=== PATIENT | male | born 1930 | race Caucasian/White ===

== ENCOUNTER 2018-11-04 03:40 | Inpatient (IN) | payer MEDICARE ==
[~2018-11-04] VITALS: Ht 165.1 cm; Wt 68.9 kg
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
[2018-11-04] MEDS ORDERED: CYAN10009 PO (04:56)
[2018-11-04 04:57] VITALS: BP 185/89
[2018-11-04] MEDS ORDERED: HYDR25CA PO (04:58)
[2018-11-04] MEDS ORDERED: TAMS-12 PO (05:00)
[2018-11-04] MEDS ORDERED: AMOX-430 PO (05:01)
[2018-11-04] MEDS ORDERED: ACETAMINOPHEN 325 MG TABLET PO PRN (05:30)
[2018-11-04] MEDS ORDERED: MAG HYDROX/AL HYDROX/SIMETH 30 ML UDC PO PRN (05:30)
[2018-11-04] MEDS ORDERED: ZOLPIDEM TARTRATE 5 MG TABLET PO PRN (05:30)
[2018-11-04] MEDS ORDERED: LORAZEPAM 0.5 MG TABLET PO PRN (05:30)
[2018-11-04] MEDS ORDERED: MAGNESIUM HYDROXIDE 30 ML UDC PO PRN (05:30)
[2018-11-04 08:00] VITALS: BP 160/93
--- NOTE | 2018-11-04 14:20 | NUR ---
GPS/RN-NOTES NOTED PATIENT VERY ANXIOUS GETTING OUT OF BED UNASSISTED,PATIENT IS CONFUSED UNSTEADY GAIT. REDIRECTED PATIENT AND ATIVAN 0.5MG P.O GIVEN PRN ORDER. WILL CONT. MONITORING FOR SAFETY AND BEHAVIOR.ALL NEEDS ATTENDED AND ANTICIPATED.
--- NOTE | 2018-11-04 15:20 | NUR ---
GPS/RN-NOTES PATIENT IN THE ROOM ,CALM,NO ACUTE DISTRESS NOTED.
[2018-11-04 16:00] VITALS: BP 154/98
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
--- NOTE | 2018-11-04 17:45 | NUR ---
GPS/RN-NOTES SIDENY SANCHEZ SEEN THE PATIENT AND WILL RECONCILE PT'S. MEDICATIONS.
--- NOTE | 2018-11-04 19:30 | NUR ---
GPS RN NOTE, RECEIVED PATIENT AWAKE AND IN ROOM NO S/S OR COMPLAINTS OF PAIN AT THIS TIME. PATIENT IS DISPLAYING NO S/S OF APPARENT DISTRESS AT THIS TIME. PATIENT BREATHING IS UNLABORED WITH EQUAL RISE AND FALL OF THE CHEST. PATIENT IS ALERT AND ORIENTED X 1 ON ROOM AIR WITH A SPO2 OF 97%. PATIENT IS MED COMPLIANT, CONFUSED, DISORGANIZED, ANXIOUS, COOPERATIVE, AND NEEDS REORIENTATION. PATIENT DENIES SUICIDE AND HOMICIDAL IDEATIONS AT THIS TIME. PATIENT ASSISTED WITH TURNING AND REPOSITIONING Q2HR AND PRN FOR COMFORT AND CIRCULATION. PATIENT HAS NO NEEDS AT THIS TIME. PATIENT EDUCATED ON THE USE OF THE CALL CARRILLO. PATIENT BED SIDE RAILS ARE UP X 2 FOR SAFETY, BED IS LOCKED AND LOW. WILL CONTINUE TO MONITOR AND MAINTAIN SAFETY Q15 MIN WITH THE HELP OF STAFF.
--- NOTE | 2018-11-04 20:04 | NUR ---
GPS RN NOTE, PATIENT VITAL SIGNS ARE FOLLOWS B/P 204 / 106, PULSE 83, TEMP 98.1, SPO2 97%. PAGED [facility] AND INFORMED REGGIE BARROW OF MY FINDINGS. REGGIE BARROW ORDERED TO GIVE METOPROLOL TARTRATE 25 MG PO BID. ALL ORDERS NOTED AND CARRIED OUT. WILL CONTINUE TO MONITOR THIS PATIENT.
[2018-11-04 20:29] VITALS: BP 204/106
[2018-11-04] MEDS ORDERED: METOPROLOL TARTRATE 25 MG TABLET PO SCH (21:00)
[2018-11-04] MEDS ORDERED: QUETIAPINE FUMARATE 25 MG TABLET PO SCH (22:00)
[2018-11-04] MEDS ORDERED: TAMSULOSIN 0.4 MG CAP.SR.24H PO SCH (22:00)
[2018-11-04] MEDS ORDERED: LEVETIRACETAM SOL (5 ML) 100 MG/ML UDC PO SCH (23:30)
--- NOTE | 2018-11-04 23:30 | NUR ---
GPS RN NOTE, RECEIVED CALL FROM RADIOLOGY AND DID A CONFERENCE CALL WITH REGGIE COULTER [facility]. 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 REGGIE COULTER GAVE ORDER TO TRANSFER PATIENT TO ICU. PAGED DR SHAHID AND INFORMED HIM OF MY FINDINGS. DR SHAHID ORDERED TO CONTINUE HOLD AND TO CONTINUE SEROQUEL 25 MG PO HS. ALL ORDERS NOTED AND CARRIED OUT. PATIENT ENDORSED TO ICU NURSE TRANSPORTED TO [facility] WITH SITTER. PATIENT LEFT IN STABLE CONDITION.
[2018-11-05] MEDS ORDERED: CYAN10009 PO (00:55)
[2018-11-05] MEDS ORDERED: ACET325T53 PO (00:55)
[2018-11-05] MEDS ORDERED: MAG-106 PO (01:00)
[2018-11-05] MEDS ORDERED: LORA0.5T PO (01:00)
[2018-11-05] MEDS ORDERED: METO25TA6 PO (01:02)
[2018-11-05] MEDS ORDERED: QUET25TA PO (01:05)
[2018-11-05] MEDS ORDERED: LEVE500T9 PO (01:21)
[2018-11-05] MEDS ORDERED: MAGN400O6 PO (08:23)
[2018-11-05] MEDS ORDERED: MAG30ORA PO (08:23)
[2018-11-05] MEDS ORDERED: CYANOCOBALAMIN 500 MCG TABLET PO SCH (09:00)
--- NOTE | 2018-11-05 09:12 | NUR ---
TRANSFER: Pt was transferred to ICU on 11/05/18 due to Subdermal Hematoma.
[2018-11-07] MEDS ORDERED: LISI5TAB45 PO (13:32)
[2018-11-07] MEDS ORDERED: HYDR-4075 PO (13:32)
== END 2018-11-05 00:03 | disposition short-term general hospital (02) | DRG 885 ==
LOC: GPS 03:40
PROVIDERS: ADMIT Psychiatry & Neurology Psychiatry; ATTEND Nurse Practitioner Acute Care
DX: F29 Unspecified psychosis not due to a substance or known physiological condition (principal); I62.00 Nontraumatic subdural hemorrhage, unspecified; F03.91 Unspecified dementia, unspecified severity, with behavioral disturbance; F41.9 Anxiety disorder, unspecified; N40.0 Benign prostatic hyperplasia without lower urinary tract symptoms; Z73.6 Limitation of activities due to disability
CPT/HCPCS: 70450-TC

== ENCOUNTER 2018-11-04 23:47 | Inpatient (IN) | payer MEDICARE ==
[~2018-11-04] VITALS: Ht 167.6 cm; Wt 70.3 kg
[~2018-11-04 23:47] MED LIST: CYAN10009 PO; TAMS-12 PO
[2018-11-04 23:54] VITALS: BP 149/88
[2018-11-05] VITALS (19 sets, daily range): BP systolic 112–169; BP diastolic 52–96
[2018-11-05] MEDS ORDERED: CYAN10009 PO (00:55)
[2018-11-05] MEDS ORDERED: ACET325T53 PO (00:55)
[2018-11-05] MEDS ORDERED: LORA0.5T PO (01:00)
[2018-11-05] MEDS ORDERED: MAG-106 PO (01:00)
[2018-11-05] MEDS ORDERED: METO25TA6 PO (01:02)
[2018-11-05] MEDS ORDERED: QUET25TA PO (01:05)
[2018-11-05] MEDS ORDERED: LEVE500T9 PO (01:21)
--- NOTE | 2018-11-05 02:19 | NUR ---
PLANT CONTROLLER. RECEIVED THE PT FROM [facility].PT IS SLEEPING CT SHOWING SUBDURAL HEMATOMA, PT IS 5150 HOLD. SITTER AT BED SIDE. PT IS ROOM AIR. SAT 97%. NO ACUTE DISTRESS NOTED. DANII LOWER EXTREMITY WEAK , ,DANII PUPIL REACT. TENSIONING MACHINE OPERATOR SHOWING S ERNESTINA. WILL CONTINUE TO MONITOR VITALS.
[2018-11-05] MEDS ORDERED: Z GUARD REMEDY 2 OZ OINT TP PRN (05:00)
[2018-11-05] MEDS ORDERED: ZOLPIDEM TARTRATE 5 MG TABLET PO PRN (05:00)
[2018-11-05] MEDS ORDERED: ONDANSETRON HCL/PF 4 MG/2 ML VIAL IVP PRN (05:00)
[2018-11-05] MEDS ORDERED: ACETAMINOPHEN 325 MG TABLET PO PRN (05:00)
[2018-11-05] MEDS: IV NS 0.9% 1,000 ML IV PRN ×2 (05:12→21:24)
[2018-11-05 05:18] LABS: BASOPHILS # (AUTO) 0.1 /CMM (0.0-0.2); EOSINOPHILS % (AUTO) 2.6 % (0.0-6.0); HEMATOCRIT 39 % (39-51); HEMOGLOBIN 13.1 g/dL (13.5-17.5); LYMPHOCYTES # (AUTO) 1.7 /CMM (0.8-4.8); LYMPHOCYTES % (AUTO) 29.1 % (20.0-44.0); MEAN CORPUSCULAR HGB CONC 34 g/dl (31.0-36.0); MEAN CORPUSCULAR VOLUME 93 fL (80-96); MONOCYTES # (AUTO) 0.6 /CMM (0.1-1.30); MONOCYTES % (AUTO) 9.7 % (2.0-12.0); NEUTROPHILS # (AUTO) 3.4 /CMM (1.8-8.9); NEUTROPHILS % (AUTO) 57.6 % (43.0-81.0); PLATELET COUNT (AUTO) 191 /CMM (150-450); RED BLOOD CELL COUNT(AUTO) 4.23 MIL/uL (4.5-6.0); WHITE BLOOD COUNT (AUTO) 5.8 K/uL (4.3-11.0)
--- NOTE | 2018-11-05 05:24 | NUR ---
MICA PLATE LAYER HAND. AM CARE, ORAL CARE, BED BATH GIVEN. LINEN CHANGED, REMAINING SAME IVF NS 75 ML/H. IV RT AND LT HAND 20G. PT ON ROOM AIR. SAT 98%.NO ACUTE DISTRESS NOTED. HEAD OF PHYSICS SHOWING S ERNESTINA. PT IS SLEEPING.STILL LETHARGIC SITTER AT BED SIDE. WILL CONTINUE TO MONITOR VITALS. DURING SHIFT NO NEW CHANGED. SINCE ON ADMISSION PT WAS LETHARGIC. SEROQUEL GIVEN FROM PSY UNIT.
[2018-11-05 05:30] LABS: CALCIUM, SERUM 8.1 mg/dL (8.5-10.1); CARBON DIOXIDE 29 mmol/L (21-32); CHLORIDE 104 mmol/L (98-107); GLUCOSE 115 mg/dL (74-106); MAGNESIUM 1.9 mg/dL (1.8-2.4); PHOSPHORUS 3.1 mg/dL (2.5-4.9); POTASSIUM 3.6 mmol/L (3.5-5.1); SODIUM SERUM 136 mmol/L (136-145); UREA NITROGEN, BLOOD 24 mg/dL (7-18)
[2018-11-05 05:32] LABS: CHOLESTEROL 152 mg/dL (<200); HDL CHOLESTEROL 39 mg/dL (40-60); LDL 107 mg/dL (0-99); TRIGLYCERIDES 53 mg/dL (30-150)
--- NOTE | 2018-11-05 07:15 | NUR ---
RN INITIAL NOTES RECEIVED PT LETHARGIC. MOVES TO PAIN. NO RESPIRATORY DISTRESS NOTED. NO SIGNS OF PAIN NOTED. ON ROOM AIR. SINUS BRADYCARDIA ON MONITOR. IV LINES IN PLACE. IVF INFUSING. PT CLEAN AND DRY. KEPT COMFORTABLE. 1:1 SITTER. WILL MONITOR
[2018-11-05] MEDS ORDERED: MAG30ORA PO (08:23)
[2018-11-05] MEDS ORDERED: MAGN400O6 PO (08:23)
--- NOTE | 2018-11-05 09:30 | NUR ---
RN NOTES PT AWAKE, A/OX1 WITH PERIODS OF CONFUSION. ABLE TO FOLLOW SIMPLE COMMANDS. BEDSIDE SWALLOW DONE. NO SIGNS OF ASPIRATION. ABLE TO TAKE MEDICINE BY MOUTH.
[2018-11-05] MEDS: LEVETIRACETAM SOL (5 ML) 100 MG/ML UDC PO SCH ×2 (10:15→21:24)
--- NOTE | 2018-11-05 10:55 | NUR ---
RN NOTES SEEN AND EXAMINED BY DR SHAHID. PT AWAKE, A/OX2. FOLLOWS COMMAND. NO RESPIRATORY DISTRESS NOTED. NO SOB NOTED. DENIES ANY PAIN. MD MARQUEZ'D [id number]. WILL CONTINUE TO MONITOR
--- NOTE | 2018-11-05 11:00 | NUR ---
RN NOTES SEEN AND EXAMINED BY DR BRAVO. PT AWAKE, A/OX1 WITH PERIODS OF CONFUSION. ABLE TO FOLLOW SIMPLE COMMANDS. ON ROOM AIR. NO SOB NOTED. DENIES ANY PAIN. MD AWARE OF LAB VALUES AND CT HEAD RESULT. PER MD, IT IS NOT A STROKE. NO NEED FOR STROKE SET. CLEARED TO DOWNGRADE PT. WILL MONITOR
--- NOTE | 2018-11-05 13:50 | NUR ---
RN NOTES PT TRANSFERRED TO 119-1. PT AWAKE, A/OX1. ON ROOM AIR. NO RESPIRATORY DISTRESS NOTED. NO SOB NOTED. DENIES ANY PAIN. GIVEN REPORT TO KEN RICHARDSON. TOOK OVER PT'S CARE. MADELIN () AWARE OF TRANSFER. TRANSFERRED IN STABLE CONDITION
--- NOTE | 2018-11-05 17:00 | NUR ---
RN NOTES SPOKE TO JALIL RN GLASS TECHNICIAN/INSTALLER, PER THE LATER SHE IS AWARE THAT PATIENT IS NOT STROKE PER DR. BRAVO BUT PATIENT STILL NEED TO BE APPROACH A STROKE PATIENT AND HAS REQUESTED TO PUT NIHSS ON PATIENT AND IF AT BEDSIDE TO GIVE TEACHING IF POSSIBLE, THUS THE NIHSS ASSESSMENT.
--- NOTE | 2018-11-05 19:28 | NUR ---
RN NOTES ENDORSED PATIENT FOR CONTINUITY OF CARE. NO ACUTE CHANGES WITHIN THE SHIFT. NO SOB NOTED. NO RESPIRATORY DISTRESS NOTED. DENIES AY PAIN. IV LINES IN PLACE. IVF INFUSING. PT CLEAN AND DRY. PT COMFORTABLE. CALL LIGHT WITHIN REACH. SAFETY MEASURES IN PLACE. HOB ELEVATED. SITTER AT BEDSIDE
--- NOTE | 2018-11-05 20:00 | NUR ---
SECURITY ASSESSOR NOTES RECEIVED PTS IN BED AWAKE CONFUSED , WITH EPISODE OF AGITATION , SITTER AT BEDSIDE , PTS EPISODE OF PULLING OUT INVASIVE TUBING , CLIMBING OUT OF BED , V/S STABLE AFEBRILE , NO SOB NO DISTRESS NOTED ON TELE SR MONITOR , MEDS GIVEN ORDERED , ALL NEEDS ATTENDED TOO CALL LIGHT WITHIN REACH , KEPT PTS CLEAN DRY AND COMFORTABLE , WILL CONTINUE TO MONITOR PTS .
[2018-11-06] VITALS: BP 160/86
--- NOTE | 2018-11-06 01:30 | NUR ---
DRAFTER PATENT NOTES PTS NOTED WITH PERIOD OF AGITATION AMBIEN GIVEN ORDERED , WILL CONTINUE TO MONITOR,ALL NEEDS ATTENDED TOO.
[2018-11-06] MEDS: HYDROCODONE/APAP 5/325MG 1 EACH TABLET PO PRN ×2 (02:03→18:01)
[2018-11-06 04:00] VITALS: BP 141/84
--- NOTE | 2018-11-06 06:42 | NUR ---
STAGE BUILDER NOTES PTS IN BED ASLEEP , REMAINS ON 1:1 SITTER, ALL NEEDS ATTENDED TOO .WILL ENDORSE TO NEXT SHIFT FOR CONTINUITY OF CARE.
[2018-11-06 07:54] VITALS: BP 162/90
[2018-11-06 08:00] VITALS: BP 162/90
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
[2018-11-06 09:27] LABS: BASOPHILS % (AUTO) 0.6 % (0.0-2.0); EOSINOPHILS % (AUTO) 3.5 % (0.0-6.0); HEMATOCRIT 38 % (39-51); HEMOGLOBIN 12.9 g/dL (13.5-17.5); LYMPHOCYTES # (AUTO) 1.3 /CMM (0.8-4.8); LYMPHOCYTES % (AUTO) 26.4 % (20.0-44.0); MEAN CORPUSCULAR HGB CONC 34 g/dl (31.0-36.0); MEAN CORPUSCULAR VOLUME 92 fL (80-96); MONOCYTES # (AUTO) 0.5 /CMM (0.1-1.30); MONOCYTES % (AUTO) 9.6 % (2.0-12.0); NEUTROPHILS % (AUTO) 59.9 % (43.0-81.0); PLATELET COUNT (AUTO) 191 /CMM (150-450); RED BLOOD CELL COUNT(AUTO) 4.16 MIL/uL (4.5-6.0); WHITE BLOOD COUNT (AUTO) 4.9 K/uL (4.3-11.0)
[2018-11-06] MEDS: LEVETIRACETAM SOL (5 ML) 100 MG/ML UDC PO SCH ×2 (09:58→21:08)
[2018-11-06 10:31] LABS: CALCIUM, SERUM 7.7 mg/dL (8.5-10.1); CARBON DIOXIDE 24 mmol/L (21-32); CHLORIDE 106 mmol/L (98-107); CREATININE 0.9 mg/dL (0.6-1.3); GLUCOSE 99 mg/dL (74-106); POTASSIUM 3.5 mmol/L (3.5-5.1); SODIUM SERUM 138 mmol/L (136-145); UREA NITROGEN, BLOOD 20 mg/dL (7-18)
[2018-11-06 16:00] VITALS: BP 173/80
[2018-11-06] MEDS: IV NS 0.9% 1,000 ML IV PRN (16:30)
--- NOTE | 2018-11-06 19:18 | NUR ---
Handoff to KEN Meade. Wisam Valencia RN
--- NOTE | 2018-11-06 19:45 | NUR ---
MS RN NOTE: RECEIVED PT ON BED ASLEEP BUT AROUSES EASILY TO VERBAL AND TACTILE STIMULI. SITTER AT BEDSIDE. NO APPARENT DISTRESS NOTED. NO FACIAL GRIMACING OR ANY SIGNS OF PAIN NOTED. ON ROOM AIR, NO SOB NOTED. IV INTACT AND PATENT, INF INFUSING WELL. KEPT CLEAN, DRY AND COMFORTABLE. SAFETY AND FALL PRECAUTIONS OBSERVED AND MAINTAINED. WILL CONTINUE TO MONITOR PT.
[2018-11-06 20:00] VITALS: BP 160/93
--- NOTE | 2018-11-06 21:00 | NUR ---
MS RN NOTE: BP 160/93, DRIVE IN THEATER ATTENDANT REGGIE COULTER NP AWARE. WILL CONTINUE TO MONITOR PT.
[2018-11-06] MEDS: LISINOPRIL (5MG) 5 MG TABLET PO SCH (21:08)
--- NOTE | 2018-11-06 22:59 | NUR ---
MS RN NOTE: RECHECKED BP, BP STILL HIGH 162/92. ROD BUSTER HELPER REGGIE COULTER MADE AWARE WITH ORDER TO GIVE HYDRALAZINE 10MG PO PRN FOR SBP >140. ORDER CARRIED OUT AND DONE.
[2018-11-06] MEDS ORDERED: hydrALAZINE HCL 10 MG TABLET PO SCH (23:00)
[2018-11-06] MEDS ORDERED: hydrALAZINE HCL 10 MG TABLET PO PRN (23:30)
[2018-11-06] MEDS: hydrALAZINE HCL 10 MG TABLET PO PRN (23:41)
--- NOTE | 2018-11-07 00:15 | NUR ---
MS RN NOTE: HYDRALAZINE 10MG PO PRN GIVEN. BP RECHECKED 139/62. WILL CONTINUE TO MONITOR PT.
[2018-11-07 04:00] VITALS: BP 150/62
[2018-11-07] MEDS: IV NS 0.9% 1,000 ML IV PRN (05:19)
[2018-11-07] MEDS: hydrALAZINE HCL 10 MG TABLET PO PRN (05:45)
--- NOTE | 2018-11-07 06:48 | NUR ---
MS RN NOTE: NO CHANGES NOTED THROUGHOUT THE SHIFT. SITTER AT BEDSIDE. NO ACUTE DISTRESS NOTED. NO COMPLAINTS OF PAIN OR DISCOMFORT NOTED. ON ROOM AIR, SATURATING WELL. NO SOB NOTED. IV ON RIGHT HAND #20 INTACT AND PATENT, IVF INFUSING WELL. KEPT CLEAN, DRY AND COMFORTABLE. SAFETY AND FALL PRECAUTIONS OBSERVED AND MAINTAINED. WILL ENDORSE TO DAY SHIFT RN FOR CONTINUITY OF CARE.
[2018-11-07 07:05] LABS: BASOPHILS % (AUTO) 0.6 % (0.0-2.0); EOSINOPHILS % (AUTO) 1.8 % (0.0-6.0); HEMATOCRIT 42 % (39-51); LYMPHOCYTES # (AUTO) 1.2 /CMM (0.8-4.8); LYMPHOCYTES % (AUTO) 17.1 % (20.0-44.0); MEAN CORPUSCULAR HGB CONC 34 g/dl (31.0-36.0); MEAN CORPUSCULAR VOLUME 93 fL (80-96); MONOCYTES # (AUTO) 0.5 /CMM (0.1-1.30); MONOCYTES % (AUTO) 7.4 % (2.0-12.0); NEUTROPHILS # (AUTO) 5.3 /CMM (1.8-8.9); NEUTROPHILS % (AUTO) 73.1 % (43.0-81.0); PLATELET COUNT (AUTO) 211 /CMM (150-450); WHITE BLOOD COUNT (AUTO) 7.2 K/uL (4.3-11.0)
[2018-11-07 07:27] LABS: CALCIUM, SERUM 8.3 mg/dL (8.5-10.1); GLUCOSE 98 mg/dL (74-106); UREA NITROGEN, BLOOD 16 mg/dL (7-18)
[2018-11-07 07:36] LABS: CARBON DIOXIDE 24 mmol/L (21-32); CHLORIDE 104 mmol/L (98-107); POTASSIUM 3.8 mmol/L (3.5-5.1); SODIUM SERUM 138 mmol/L (136-145)
[2018-11-07 08:00] VITALS: BP 145/66
[2018-11-07] MEDS: LISINOPRIL (5MG) 5 MG TABLET PO SCH (09:28)
[2018-11-07] MEDS: LEVETIRACETAM SOL (5 ML) 100 MG/ML UDC PO SCH (09:28)
[2018-11-07] MEDS: HYDROCODONE/APAP 5/325MG 1 EACH TABLET PO PRN (13:19)
[2018-11-07] MEDS ORDERED: HYDR-4075 PO (13:32)
[2018-11-07] MEDS ORDERED: LISI5TAB45 PO (13:32)
[2018-11-07 16:00] VITALS: BP 119/52
--- NOTE | 2018-11-07 19:50 | NUR ---
MS LANDSCAPE DRAFTER NOTE PATIENT DISCHARGED TO [facility] VIA EMT TRANSPORT. KEN DEY SPOKE TO KEN GOLDEN AT [facility] FOR REPORT AND CONFIRMED ROOM PLACEMENT. L HAND IV SL REMOVED, PATIENT CLEAN AND DRY. PATIENT HAD DINNER AND ALL SCHEDULED MEDICATIONS BEFORE LEAVING. PATIENT STABLE UPON DISCHARGE.
== END 2018-11-07 18:35 | DRG 65 ==
LOC: UNDOADMIN 23:47 → ICU 23:47 → TELE1 11-05 13:26 → MEDSG1 11-06 09:04 → UNDODISIN 11-07 18:35
PROVIDERS: ADMIT Nurse Practitioner Acute Care; ATTEND Family Medicine
DX: I62.00 Nontraumatic subdural hemorrhage, unspecified (principal); G93.40 Encephalopathy, unspecified; N17.9 Acute kidney failure, unspecified; I60.9 Nontraumatic subarachnoid hemorrhage, unspecified; E78.5 Hyperlipidemia, unspecified; F03.90 Unspecified dementia, unspecified severity, without behavioral disturbance, psychotic disturbance, mood disturbance, and anxiety; G40.909 Epilepsy, unspecified, not intractable, without status epilepticus; F29 Unspecified psychosis not due to a substance or known physiological condition; N40.0 Benign prostatic hyperplasia without lower urinary tract symptoms; I62.03 Nontraumatic chronic subdural hemorrhage
CPT/HCPCS: 36415; 70450-TC; 80048-TC; 80061-TC; 83735-TC; 84100-TC; 85025-TC; 87081-TC; G0378; J1953; J7030

== ENCOUNTER 2018-11-28 14:50 | Inpatient (IN) | payer MEDICARE ==
[~2018-11-28] VITALS: Ht 170.2 cm; Wt 70.8 kg
[~2018-11-28 14:50] MED LIST changes: +ACET325T53 PO; +HYDR-4075 PO; +LEVE500T9 PO; +LISI5TAB45 PO; +LORA0.5T PO; +MAG30ORA PO; +MAGN400O6 PO; +METO25TA6 PO
--- NOTE | 2018-11-28 14:55 | NUR ---
BBRA 86 FROM [facility] C/O MORE ALTERED THAN USUAL. RR IS EVEN AND UNLABORED WITH NAD NOTED. SKIN IS WARM AND DRY. PLACED ON THE MONITOR. DR GOMEZ AT BS FOR BHARGAVI.
[2018-11-28] MEDS ORDERED: CYAN500T4 PO (15:05)
[2018-11-28] MEDS ORDERED: DOCU-141 PO (15:05)
[2018-11-28] MEDS ORDERED: HYDR-4075 PO (15:05)
[2018-11-28] MEDS ORDERED: LISI-607 PO (15:05)
[2018-11-28] MEDS ORDERED: MULT-447 PO (15:05)
[2018-11-28] MEDS ORDERED: BISA10SU8 RC (15:05)
[2018-11-28] MEDS ORDERED: NA P133E RC (15:05)
[2018-11-28 15:10] LABS: BASOPHILS # (AUTO) 0.3 /CMM (0.0-0.2); BASOPHILS % (AUTO) 3.7 % (0.0-2.0); EOSINOPHILS % (AUTO) 2.6 % (0.0-6.0); HEMATOCRIT 43 % (39-51); HEMOGLOBIN 14.3 g/dL (13.5-17.5); LYMPHOCYTES # (AUTO) 0.9 /CMM (0.8-4.8); MEAN CORPUSCULAR HGB CONC 33 g/dl (31.0-36.0); MEAN CORPUSCULAR VOLUME 93 fL (80-96); MONOCYTES # (AUTO) 0.5 /CMM (0.1-1.30); MONOCYTES % (AUTO) 6.7 % (2.0-12.0); NEUTROPHILS # (AUTO) 5.9 /CMM (1.8-8.9); PLATELET COUNT (AUTO) 232 /CMM (150-450); RED BLOOD CELL COUNT(AUTO) 4.63 MIL/uL (4.5-6.0); WHITE BLOOD COUNT (AUTO) 7.9 K/uL (4.3-11.0)
[2018-11-28 15:10] LABS: APPEARANCE,URINE Clear (CLEAR); BILIRUBIN,URINE SMALL (NEGATIVE); BLOOD, URINE Trace-intact Ery/uL (NEGATIVE); COLOR,URINE Yellow (YELLOW); KETONES,URINE 15 (NEGATIVE); LEUKOCYTE ESTERASE ,URINE Negative (NEGATIVE); NITRITE, URINE Negative (NEGATIVE); PH,URINE 5.5 (5.0-8.0); PROTEIN,URINE Trace mg/dl (NEGATIVE); UGLUCOSE Negative (NEGATIVE)
[2018-11-28 15:19] LABS: ALANINE AMINOTRANSFERASE 24 U/L (12-78); ALBUMIN 3.2 g/dL (3.4-5.0); ALKALINE PHOSPHATASE 79 U/L (46-116); ASPARTATE AMINOTRANSFERASE 31 U/L (15-37); BILIRUBIN,DIRECT 0.2 mg/dL (0.0-0.2); BILIRUBIN,TOTAL 0.7 mg/dL (0.2-1.0); CALCIUM, SERUM 8.7 mg/dL (8.5-10.1); CARBON DIOXIDE 28 mmol/L (21-32); CHLORIDE 104 mmol/L (98-107); CREATININE 1.2 mg/dL (0.6-1.3); GLUCOSE 112 mg/dL (74-106); LIPASE 66 U/L (73-393); POTASSIUM 4.3 mmol/L (3.5-5.1); SODIUM SERUM 139 mmol/L (136-145); TOTAL PROTEIN, SERUM 6.1 g/dL (6.4-8.2); UREA NITROGEN, BLOOD 23 mg/dL (7-18)
[2018-11-28] MEDS: LEVETIRACETAM (500MG) 500 MG in IV NS 0.9% 100 ML IV SCH (15:22)
[2018-11-28 15:23] LABS: BACTERIA,URINE Rare /HPF (None Seen); SQUAMOUS EPITHELIAL CELL,UR Few /HPF (None Seen); WBC,URINE 0-2 /HPF (0-3)
--- NOTE | 2018-11-28 15:24 | NUR ---
CALLED NURSING SUP FOR TELE BED
--- NOTE | 2018-11-28 15:29 | NUR ---
SEEN AND EXAMINED BY DR. QUEVEDO. TO MD WITH DR. GOMEZ. 311-1 TELE. PRIMARY NURSE AWARE.
[2018-11-28] MEDS ORDERED: IV NS 0.9% 1,000 ML BAG IV ONE (15:30)
--- NOTE | 2018-11-28 15:36 | NUR ---
REPORT GIVEN TO NICANRO RN FOR FARHAT; PT WILL BE TRANSPORTED TO [address] [place] [address] VIA [facility] PROT[employer]OL
[2018-11-28 17:17] VITALS: BP 138/72
[2018-11-28] MEDS ORDERED: hydrALAZINE HCL 10 MG TABLET PO PRN (17:30)
[2018-11-28] MEDS: METOPROLOL TARTRATE 25 MG TABLET PO SCH ×2 (17:30→21:00)
[2018-11-28] MEDS ORDERED: NA PHOS,M-B/NA PHOS,DI-BA 1 EA ENEMA RC PRN (17:30)
[2018-11-28] MEDS: LISINOPRIL (5MG) 5 MG TABLET PO SCH (17:30)
[2018-11-28] MEDS ORDERED: ACETAMINOPHEN 325 MG TABLET PO PRN ×2 (17:30→18:00)
[2018-11-28] MEDS ORDERED: LORAZEPAM 0.5 MG TABLET PO PRN (17:30)
[2018-11-28] MEDS ORDERED: MAGNESIUM HYDROXIDE 30 ML UDC PO PRN ×2 (17:30→18:00)
[2018-11-28] MEDS: DOCUSATE SODIUM 100 MG CAPSULE PO SCH (17:30)
[2018-11-28] MEDS ORDERED: BISACODYL SUPP (10 MG) 10 MG/SUPP.RECT SUPP.RECT RC PRN (17:30)
[2018-11-28] MEDS: CYANOCOBALAMIN 500 MCG TABLET PO SCH ×2 (17:30→21:00)
[2018-11-28] MEDS ORDERED: IV NS 0.9% 1,000 ML IV PRN (17:32)
--- NOTE | 2018-11-28 17:45 | NUR ---
MEASUREMENT SUPERINTENDENT RECEIVING NOTES Received patient that has Altered level of mental status. Patient is currently at a/o x 0. Patient does not open his eyes when called. Patient has two IV lines, #22 Right hand, and Right AC #18. Patient's vital sign stable. Patient is currently DNR/DNI. Bed at the lowest setting, call light within reach.
[2018-11-28] MEDS ORDERED: HYDROCODONE/APAP 5/325MG 1 EACH TABLET PO PRN (18:00)
[2018-11-28] MEDS ORDERED: MAG HYDROX/AL HYDROX/SIMETH 30 ML UDC PO PRN (18:00)
[2018-11-28] MEDS ORDERED: ZOLPIDEM TARTRATE 5 MG TABLET PO PRN (18:00)
[2018-11-28] MEDS ORDERED: ONDANSETRON HCL/PF 4 MG/2 ML VIAL IVP PRN (18:00)
[2018-11-28] MEDS ORDERED: Z GUARD REMEDY 2 OZ OINT TP PRN (18:00)
--- NOTE | 2018-11-28 18:26 | NUR ---
CHAR CONVEYOR TENDER CELLAR NOTES Patient unable to take medications at this time. Patient is asleep and is not responsive, unable to swallow. Charge nurse aware.
--- NOTE | 2018-11-28 20:03 | NUR ---
CONSTRUCTION IRONWORKER HELPER OPENING NOTES RECEIVED REPORT BEDSIDE, PT IN BED, SLEEPING, UNAROUSABLE SINCE ADMISSION, MD AWARE. BREATHING EVEN AND UNLABORED ON ROOM AIR SATING AT 96, OCCASIONAL COUGH WITH CONGESTION PRESENT, CHEST XRAY SHOWED NO IRREGULARITY. IV ACCESS ON THE R HAND 22G AND RAC18G BOTH PATENT AND FLUSHING STAIN SPRAYER IN PLACE, SB IN THE LOW 50S. BED IN LOWEST LOCKED POSITION, SAFETY MEASURES IN PLACE. WILL CONTINUE TO MONITOR FREQUENTLY.
[2018-11-28 20:27] VITALS: BP 160/69
[2018-11-28] MEDS ORDERED: LEVETIRACETAM SOL (5 ML) 100 MG/ML UDC PO SCH (21:00)
[2018-11-28] MEDS ORDERED: TAMSULOSIN 0.4 MG CAP.SR.24H PO SCH (22:00)
[2018-11-29 01:30] VITALS: BP 134/96
[2018-11-29] MEDS ORDERED: LEVETIRACETAM (500MG) 500 MG/5 ML VIAL IV ONE (03:38)
[2018-11-29 03:49] LABS: BASOPHILS % (AUTO) 0.7 % (0.0-2.0); EOSINOPHILS % (AUTO) 5.3 % (0.0-6.0); HEMATOCRIT 41 % (39-51); HEMOGLOBIN 13.9 g/dL (13.5-17.5); LYMPHOCYTES # (AUTO) 1.6 /CMM (0.8-4.8); LYMPHOCYTES % (AUTO) 23.5 % (20.0-44.0); MEAN CORPUSCULAR HGB CONC 34 g/dl (31.0-36.0); MEAN CORPUSCULAR VOLUME 93 fL (80-96); MONOCYTES # (AUTO) 0.6 /CMM (0.1-1.30); MONOCYTES % (AUTO) 8.2 % (2.0-12.0); NEUTROPHILS # (AUTO) 4.3 /CMM (1.8-8.9); NEUTROPHILS % (AUTO) 62.3 % (43.0-81.0); PLATELET COUNT (AUTO) 200 /CMM (150-450); RED BLOOD CELL COUNT(AUTO) 4.45 MIL/uL (4.5-6.0); WHITE BLOOD COUNT (AUTO) 6.9 K/uL (4.3-11.0)
[2018-11-29] MEDS: LEVETIRACETAM (500MG) 500 MG in IV NS 0.9% 100 ML IV SCH (03:53)
[2018-11-29 04:12] LABS: ALANINE AMINOTRANSFERASE 17 U/L (12-78); ALBUMIN 2.8 g/dL (3.4-5.0); ALKALINE PHOSPHATASE 75 U/L (46-116); ASPARTATE AMINOTRANSFERASE 25 U/L (15-37); BILIRUBIN,TOTAL 0.9 mg/dL (0.2-1.0); CALCIUM, SERUM 8.5 mg/dL (8.5-10.1); CARBON DIOXIDE 22 mmol/L (21-32); CHLORIDE 108 mmol/L (98-107); GLUCOSE 88 mg/dL (74-106); MAGNESIUM 2.2 mg/dL (1.8-2.4); PHOSPHORUS 3.5 mg/dL (2.5-4.9); POTASSIUM 4.1 mmol/L (3.5-5.1); SODIUM SERUM 141 mmol/L (136-145); TOTAL PROTEIN, SERUM 5.6 g/dL (6.4-8.2); UREA NITROGEN, BLOOD 24 mg/dL (7-18)
[2018-11-29 04:14] LABS: CHOLESTEROL 121 mg/dL (<200); HDL CHOLESTEROL 36 mg/dL (40-60); LDL 77 mg/dL (0-99); TRIGLYCERIDES 46 mg/dL (30-150)
[2018-11-29 04:52] VITALS: BP 122/65
--- NOTE | 2018-11-29 06:12 | NUR ---
MOBILE DEVELOPER CLOSING NOTES PT REMAINS IN BED, SLEEPING, UNAROUSABLE. BREATHING EVEN AND UNLABORED ON ROOM AIR SATING AT 98, OCCASIONAL COUGH WITH CONGESTION PRESENT. IV ACCESS ON THE R HAND 22G AND RAC18G BOTH PATENT AND FLUSHING CORPORATE PHYSICAL SECURITY SUPERVISOR IN PLACE, SB IN THE LOW 60S. BED IN LOWEST LOCKED POSITION, SAFETY MEASURES IN PLACE. WILL ENDORSE TO DAY NURSE FOR FARHAT
[2018-11-29 08:00] VITALS: BP 169/74
--- NOTE | 2018-11-29 08:07 | NUR ---
TELE MS RN PT RECEIVED RESTING IN BED. NO SOB OR ACUTE DISTRESS NOTED. PT SLEEPING AND UNAROUSABLE. PT SPO2 AT 98 WITH UNLABORED BREATHING. VITAL SIGNS ARE STABLE. BED LOCKED, LOW POSITION, AND CALL LIGHT WITHIN REACH.WILL CONTINUE TO MONITOR PATIENT FREQUENTLY.
[2018-11-29] MEDS: CYANOCOBALAMIN 500 MCG TABLET PO SCH (09:00)
[2018-11-29] MEDS: METOPROLOL TARTRATE 25 MG TABLET PO SCH (09:00)
[2018-11-29] MEDS: LISINOPRIL (5MG) 5 MG TABLET PO SCH (09:00)
[2018-11-29] MEDS: DOCUSATE SODIUM 100 MG CAPSULE PO SCH (09:00)
--- NOTE | 2018-11-29 12:08 | NUR ---
MS RN NOTES RECEIVED CALL FROM RADIOLOGIST REPORTING SUBDURAL HEMATOMA HAS INCREASED IN SIZE AND NEW ISCHEMIA NOTED. PAGED DR. FRANCE WAITING FOR CALL BACK. PATIENT RESPONDS TO PAINFUL STIMULI OPENS EYES AND KEEPS OPEN FOR 10 - 15 SECONDS AND RETURNS TO SLEEP. PATIENTS AT BEDSIDE. STATES IF RESULTS COME BACK OF CT AND THERE IS A HEMOPHAGE SHE DOES NOT WISH TO DO ANY SURGERY. WILL CONTINUE TO MONITOR.
--- NOTE | 2018-11-29 12:30 | NUR ---
MS RN NOTES CALL RECEIVED FROM DR. FRANCE REPORTED RESULTS OF CT OF HEAD ORDERS TO CONTINUE TO MONITOR. ASKED TO SWITCH PO MEDICATIONS TO IV, ORDERS OBTAINED TO SWITCH KEPPRA TO IV AND CHANGE HYDRALAZINE 20MG IV Q8HRS SCHEDULED HOLD IF BP LESS THEN 110. ORDERS NOTED AND CARRIED OUT. PLACE PATIENT ON NPO DUE TO LETHARGY .
[2018-11-29] MEDS ORDERED: LEVETIRACETAM (500MG) 500 MG in IV NS 0.9% 100 ML IV SCH (13:00)
[2018-11-29] MEDS ORDERED: hydrALAZINE HCL IV 20 MG VIAL IV SCH (13:00)
--- NOTE | 2018-11-29 15:00 | NUR ---
MS RN NOTES CALLED DR. SIMPSON NEUROLOGY CONFIRMING HE RECEIVED NOTICE TO SEE PATIENT AND WHEN STATES HE WILL SEE PATIENT LATER TODAY.
[2018-11-29 16:00] VITALS: BP 136/71
[2018-11-29] MEDS ORDERED: LEVETIRACETAM SOL (5 ML) 100 MG/ML UDC PO SCH (16:00)
--- NOTE | 2018-11-29 19:32 | NUR ---
MS RN CLOSING NOTES PT EYES ARE CLOSED. PT REMAINS IN BED SLEEPING, UNRESPONSIVE TO VERBAL STIMULI. PT WITH UNLABORED BREATHING, WITH NO SOB OR ANY ACUTE DISTRESS. PT WITH SUBDURAL HEMATOMA. PTS TALKED WITH NEUROSURGEONS DR. ZEE AND DR. SYLVESTER, ON NEUROSURGERY FOR SUBDURAL HEMATOMA. PTS FAMILY HAS AGREED WITH NEUROSURGERY. PT SCHEDULED TO TRANSFER TO [facility]. PT NEEDS MET. PT RECEIVED MEDICATIONS.BED LOWERED, LOCKED, AND CALL LIGHT WITHIN REACH.ENDORSED CARE TO PM SHIFT.
--- NOTE | 2018-11-29 20:03 | NUR ---
PT TRANSFERRED TO [facility] FOR SURGERY, REPORT CALLED INTO CRISTIANE RN IN THE ICU, PT GOING TO ROOM 4518. CHART GIVEN TO EMS
== END 2018-11-29 20:05 | disposition short-term general hospital (02) | DRG 66 ==
LOC: ER 14:50 → TELE 15:35 → MED 11-29 09:52
PROVIDERS: ADMIT Internal Medicine; ATTEND Internal Medicine
DX: I62.01 Nontraumatic acute subdural hemorrhage (principal); Z66 Do not resuscitate; F03.90 Unspecified dementia, unspecified severity, without behavioral disturbance, psychotic disturbance, mood disturbance, and anxiety; N40.0 Benign prostatic hyperplasia without lower urinary tract symptoms; G40.909 Epilepsy, unspecified, not intractable, without status epilepticus; F41.9 Anxiety disorder, unspecified
CPT/HCPCS: 36415; 70450-TC; 71045-TC; 80048-TC; 80053-TC; 80061-TC; 80076-TC; 81000-TC; 83690-TC; 83735-TC; 84100-TC; 84484-TC; 85025-TC; 87081-TC; 87086-TC; 93307-TC; G0378; J0360; J1953; J7030; J7050; J7060

== ENCOUNTER 2018-12-10 15:00 | Emergency (ER) ==
[~2018-12-10] VITALS: Ht 182.9 cm; Wt 73.5 kg
[~2018-12-10 15:00] MED LIST changes: +BISA10SU11 RC; -CYAN10009 PO; +CYAN500T4 PO; +DOCU-141 PO; +LISI-607 PO; -LISI5TAB45 PO; -MAG30ORA PO; +MULT-447 PO; +NA P133E RC
[2018-12-10] MEDS ORDERED: PANT40TA2 PO (15:16)
[2018-12-10] MEDS ORDERED: HEPA100D33 SQ (15:16)
[2018-12-10] MEDS ORDERED: CLOB15OI3 TP (15:21)
[2018-12-10] MEDS ORDERED: ZINC56.7 TP (15:21)
[2018-12-10] MEDS ORDERED: HYDR-4354 PO (15:21)
[2018-12-10] MEDS ORDERED: POVI1MED TP (15:21)
[2018-12-10] MEDS ORDERED: BISA10SU61 RC (15:27)
--- NOTE | 2018-12-10 15:36 | NUR ---
JE CABALLREO, SENT HERE FROM SNF FOR MRI OF BRAIN. HX OF LT SUBDURAL HEMATOMA AA&OX1. DENIES DIZZINESS, JAIMES, N/V AT THIS TIME. PT AOX1, FALL RISK, HYPERTENSIVE, RR EVEN AND UNLABORED ON RA. HOOKED TO MONITOR, BUT TRIES TO REMOVE EVERYTHING. SKIN INTACT, HAS SCAR ON LEFT SCALP FROM PREVIOUS CRANIOTOMY. HOOKED TO MONITOR AND SEEN BY DR LOVELACE. AWAITING ORDERS
[2018-12-10 15:53] LABS: BASOPHILS % (AUTO) 0.6 % (0.0-2.0); EOSINOPHILS % (AUTO) 5.4 % (0.0-6.0); HEMATOCRIT 38 % (39-51); HEMOGLOBIN 12.9 g/dL (13.5-17.5); LYMPHOCYTES # (AUTO) 1.4 /CMM (0.8-4.8); LYMPHOCYTES % (AUTO) 20.1 % (20.0-44.0); MEAN CORPUSCULAR HGB CONC 34 g/dl (31.0-36.0); MEAN CORPUSCULAR VOLUME 93 fL (80-96); MONOCYTES # (AUTO) 0.6 /CMM (0.1-1.30); MONOCYTES % (AUTO) 8.2 % (2.0-12.0); NEUTROPHILS # (AUTO) 4.6 /CMM (1.8-8.9); NEUTROPHILS % (AUTO) 65.7 % (43.0-81.0); PLATELET COUNT (AUTO) 255 /CMM (150-450); RED BLOOD CELL COUNT(AUTO) 4.15 MIL/uL (4.5-6.0)
[2018-12-10 16:04] LABS: ALANINE AMINOTRANSFERASE 86 U/L (12-78); ALBUMIN 2.7 g/dL (3.4-5.0); ALKALINE PHOSPHATASE 97 U/L (46-116); ASPARTATE AMINOTRANSFERASE 41 U/L (15-37); BILIRUBIN,DIRECT 0.1 mg/dL (0.0-0.2); BILIRUBIN,TOTAL 0.4 mg/dL (0.2-1.0); CALCIUM, SERUM 8.6 mg/dL (8.5-10.1); CARBON DIOXIDE 30 mmol/L (21-32); CHLORIDE 102 mmol/L (98-107); GLUCOSE 167 mg/dL (74-106); POTASSIUM 4.4 mmol/L (3.5-5.1); SODIUM SERUM 138 mmol/L (136-145); TOTAL PROTEIN, SERUM 5.7 g/dL (6.4-8.2); UREA NITROGEN, BLOOD 20 mg/dL (7-18)
--- NOTE | 2018-12-10 16:15 | NUR ---
PT TAKEN TO CT VIA [facility]SM[facility]
--- NOTE | 2018-12-10 16:25 | NUR ---
PT BACK FROM CT. PER QUILL REAMER, PT REMOVED ALL MONITOR DEVICES. RECONNECTED AND WILL CONT TO MONITOR.
--- NOTE | 2018-12-10 17:13 | NUR ---
PT CONTINUES TO REMOVE MONITORING DEVICES. MD GIVENS
--- NOTE | 2018-12-10 17:35 | NUR ---
called carla slater Addendum: 12/10/[address] Michael CISNEROS
--- NOTE | 2018-12-10 18:48 | NUR ---
called transport [facility] kristen of 1/2--2 hours trip number [phone] vadim.
--- NOTE | 2018-12-10 19:02 | NUR ---
PT RESTING COMFORTABLY IN BED. NO COMPLAINTS. VSS.
--- NOTE | 2018-12-10 21:05 | NUR ---
PT ASLEEP IN BED. AROUSES EASILY. VSS. WILL CONT TO MONITOR.
--- NOTE | 2018-12-10 21:12 | NUR ---
CALLED [facility] FOR AN UPDATE. UPDATED ETA [id number]
--- NOTE | 2018-12-10 22:31 | NUR ---
REPORT GIVEN TO JOSE BESS, AND ALAN AT [facility]
[2018-12-10] MEDS ORDERED: hydrALAZINE HCL IV 20 MG VIAL ONE (22:45)
[2018-12-10] MEDS ORDERED: hydrALAZINE HCL IV 20 MG VIAL IV ONE (23:00)
--- NOTE | 2018-12-10 23:42 | NUR ---
PT BP CAME DOWN, TRANSFERRED TO [place]
[2018-12-10 23:43] VITALS: BP 156/80
[2019-01-10] MEDS ORDERED: QUET25TA PO (10:15)
== END 2018-12-10 23:46 | disposition home or self-care (01) ==
LOC: ER 15:01
DX: I62.03 Nontraumatic chronic subdural hemorrhage (principal); I10 Essential (primary) hypertension; G93.49 Other encephalopathy; N40.0 Benign prostatic hyperplasia without lower urinary tract symptoms; F03.90 Unspecified dementia, unspecified severity, without behavioral disturbance, psychotic disturbance, mood disturbance, and anxiety; R40.4 Transient alteration of awareness
CPT/HCPCS: 36415; 70450; 71045; 80048; 80076; 82962; 84484; 85025; 85730; 93005; 96374; 99284; J0360